=== PATIENT | female | born 1960 | race Caucasian/White ===

== ENCOUNTER 2017-12-08 06:15 | Emergency (ER) | payer OTHER ==
[2017-12-08] MEDS ORDERED: NS 1,000 ML IV ONE ×2 (06:47→07:01)
[2017-12-08] MEDS ORDERED: KETOROLAC 30 MG/1 ML SDV IVP ONE (07:01)
[2017-12-08] MEDS ORDERED: PROMETHAZINE HCL 25 MG/ML INJ IVP ONE ×2 (07:03→07:47)
--- NOTE | 2017-12-08 07:07 | EDPHY ---
H & P Stated Complaint: MIGRAINE SINCE 2 AM/HX OF MIGRAINES Time Seen by Provider: 12/08/17 06:49 HPI/ROS: CHIEF COMPLAINT: Migraine HISTORY OF PRESENT ILLNESS: This is a 57-year-old female who has suffered from migraine headaches since she was 13 years old. Her last migraine was approximately 6 months ago. She developed headache 5 hr ago that has been unremitting. She tried Fioricet. She uses either Fioricet or Imitrex when she has migraines, depending upon what her insurance will cover. Her pain was initially bitemporal and now involves the top of her head also. She has had some or is and is photophobic. She is experiencing nausea but has not vomited. No numbness or weakness. She has not recently been ill and denies fever. This is typical of her usual migraines. REVIEW OF SYSTEMS: A ten point review of systems was performed and is negative with the exception of the items mentioned in the HPI. Past medical history: Migraine headache Past surgical history: Social history: She lives with her . They have recently moved back to [place] from [place]. She is currently unemployed but plans to work once they are more settled. She has established local medical care. She does not use tobacco products. General Appearance: Alert. Vital signs reviewed. Eyes: Pupils equal and round, no conjunctival injection, no discharge. Anicteric. ENT, Mouth: Mucous membranes are moist, no oropharyngeal erythema or edema. Neck: No lymphadenopathy, supple. No meningeal signs. Respiratory: Lungs are clear to auscultation; no wheezes, rales, or rhonchi. Cardiovascular: Regular rate and rhythm; no murmur, rub, or gallop. Gastrointestinal: Abdomen is soft and nontender. Skin: Warm and dry, no rashes on exposed skin, normal color. Extremities: No lower extremity edema, no calf tenderness or swelling. Neurological: Alert and oriented. Moving all four extremities easily and equally. VIRGILIO. EOMI. Facial expressions symmetric. Tongue midline. Sensation intact to light touch over all 4 extremities. Facial sensation intact to light touch. Psychiatric: Normal affect. - Personal History Current Tetanus Diphtheria and Acellular Pertussis (TDAP): Yes - Medical/Surgical History Hx Asthma: No Hx Chronic Respiratory Disease: No Hx Diabetes: No Hx Cardiac Disease: No Hx Renal Disease: No Hx Cirrhosis: No Hx Alcoholism: No Hx HIV/AIDS: No Hx Splenectomy or Spleen Trauma: No Other PMH: MIGRAINES, SINUS SX 2008, AND 2009 - Social History Smoking Status: Never smoked Constitutional: Initial Vital Signs Temperature (C) 36.7 C 12/08/17 06:21 Heart Rate 89 12/08/17 06:21 Respiratory Rate 16 12/08/17 06:21 Blood Pressure 175/107 H 12/08/17 06:21 O2 Sat (%) 99 12/08/17 06:21 O2 Delivery Mode Room Air Allergies/Adverse Reactions: codeine Allergy (Verified 12/08/17 06:20) ondansetron [From Zofran] Allergy (Verified 12/08/17 06:20) Sulfa (Sulfonamide Antibiotics) Allergy (Verified 12/08/17 06:20) Home Medications: Medication Instructions Recorded Fioricet (*) 12/08/17 [place] 5/325 (*) 12/08/17 Medical Decision Making ED Course/Re-evaluation: In the past she has required treatment in the emergency department for her migraine headaches. She has required IV Phenergan and Benadryl, and ultimately Dilaudid if other medications do not work. She will be given 1 L normal saline , Phenergan 12.5 mg IV, Benadryl 25 mg IV, and Toradol 30 mg IV. 7:50 a.m.. Patient is sitting up in bed. She states that she still has headache, essentially no change. 8:45 a.m.: Still with headache although improved. Will give a 2nd dose of Dilaudid, 0.5 mg IV. Per her report this is typically how things go with her headaches. She thinks that a 2nd dose will likely be sufficient. I do not suspect drug-seeking on her part. 9:30 a.m.: Patient re-evaluated. She is awake and alert. She is feeling much better, well enough to go home. She will call her for ride home. Differential Diagnosis: Headache including but not limited to subarachnoid hemorrhage, migraine headache , tension headache and infectious causes such as meningitis, pharyngitis and sinusitis. - Data Points Laboratory Results: Laboratory Results 12/08/17 07:00 12/08/17 07:00 12/08/17 12/08/17 07:00 07:00 WBC 6.31 10^3/uL 10^3/uL (3.80-9.50) RBC 4.27 10^6/uL 10^6/uL (4.18-5.33) Hgb 12.7 g/dL g/dL (12.6-16.3) Hct 37.4 % L % (38.0-47.0) MCV 87.6 fL fL (81.5-99.8) MCH 29.7 pg pg (27.9-34.1) MCHC 34.0 g/dL g/dL (32.4-36.7) RDW 12.4 % % (11.5-15.2) Plt Count 343 10^3/uL 10^3/uL (150-400) MPV 8.6 fL L fL (8.7-11.7) Neut % (Auto) 63.3 % % (39.3-74.2) Lymph % (Auto) 28.5 % % (15.0-45.0) [place] % (Auto) 7.1 % % (4.5-13.0) Eos % (Auto) 0.5 % L % (0.6-7.6) Baso % (Auto) 0.3 % % (0.3-1.7) Nucleat RBC Rel Count 0.0 % % (0.0-0.2) Absolute Neuts (auto) 3.99 10^3/uL 10^3/uL (1.70-6.50) Absolute Lymphs (auto) 1.80 10^3/uL 10^3/uL (1.00-3.00) Absolute Monos (auto) 0.45 10^3/uL 10^3/uL (0.30-0.80) Absolute Eos (auto) 0.03 10^3/uL 10^3/uL (0.03-0.40) Absolute Basos (auto) 0.02 10^3/uL 10^3/uL (0.02-0.10) Absolute Nucleated RBC 0.00 10^3/uL 10^3/uL (0-0.01) Immature Gran % 0.3 % % (0.0-1.1) Immature Gran # 0.02 10^3/uL 10^3/uL (0.00-0.10) Sodium 142 mEq/L mEq/L (135-145) Potassium 3.5 mEq/L mEq/L (3.3-5.0) Chloride 103 mEq/L mEq/L (97-110) Carbon Dioxide 25 mEq/l mEq/l (22-31) Anion Gap 14 mEq/L mEq/L (8-16) BUN 22 mg/dL mg/dL (7-23) Creatinine 0.5 mg/dL L mg/dL (0.6-1.0) Estimated GFR > 60 Glucose 108 mg/dL H mg/dL (70-100) Calcium 9.1 mg/dL mg/dL (8.5-10.4) Medications Given: Discontinued Medications Diphenhydramine HCl (Benadryl Injection) 25 mg IVP EDNOW ONE Stop: 12/08/17 07:02 Last Admin: 12/08/17 07:12 Dose: 25 mg Hydromorphone HCl (Dilaudid) 1 mg IVP EDNOW ONE Stop: 12/08/17 07:51 Last Admin: 12/08/17 08:00 Dose: Not Given Hydromorphone HCl (Dilaudid) 1 mg IVP EDNOW ONE Stop: 12/08/17 08:01 Last Admin: 12/08/17 07:56 Dose: 1 mg Hydromorphone HCl (Dilaudid) 0.5 mg IVP EDNOW ONE Stop: 12/08/17 08:43 Last Admin: 12/08/17 08:55 Dose: 0.5 mg Sodium Chloride (Ns) 1,000 mls @ 0 mls/hr IV ONCE ONE PRN Reason: Wide Open Stop: 12/08/17 06:48 Last Admin: 12/08/17 07:13 Dose: 1,000 mls Sodium Chloride (Ns) 1,000 mls @ 0 mls/hr IV ONCE ONE; Wide Open PRN Reason: Protocol Stop: 12/08/17 07:02 Last Admin: 12/08/17 07:57 Dose: 1,000 mls Ketorolac Tromethamine (Toradol) 30 mg IVP EDNOW ONE Stop: 12/08/17 07:02 Last Admin: 12/08/17 07:10 Dose: 30 mg Promethazine HCl (Phenergan) 12.5 mg IVP ONCE ONE Stop: 12/08/17 07:04 Last Admin: 12/08/17 07:09 Dose: 12.5 mg Promethazine HCl (Phenergan) 12.5 mg IVP EDNOW ONE Stop: 12/08/17 07:48 Last Admin: 12/08/17 07:57 Dose: 12.5 mg Departure - Departure Disposition: Home, Routine, Self-Care Clinical Impression: Migraine Qualifiers: Migraine type: with aura Status migrainosus presence: without status migrainosus Intractability: not intractable Qualified Code(s): G43.109 - Migraine with aura, not intractable, without status migrainosus Condition: Good Instructions: Migraine Headache (ED) Referrals: JENNY KOCH [Primary Care Provider] - As per Instructions
[2017-12-08 07:09] LABS: PLATELET COUNT 343 10^3/uL (150-400)
[2017-12-08] MEDS ORDERED: HYDROmorphONE/DILAUDID 2 MG/ML INJ IVP ONE ×2 (07:50→08:42)
[2017-12-08] MEDS ORDERED: HYDROmorphONE/DILAUDID 1 MG/ML INJ IVP ONE (08:00)
[2017-12-08] MEDS ORDERED: HYDROmorphONE/DILAUDID 1 MG/ML INJ ONE (08:53)
[2017-12-08 09:56] VITALS: BP 148/78
== END 2017-12-08 09:59 | disposition home or self-care (01) ==
DX: G43.109 Migraine with aura, not intractable, without status migrainosus (principal); E86.9 Volume depletion, unspecified
CPT/HCPCS: 96374; J1170; J1200; J1885; J2550

== ENCOUNTER 2018-12-01 21:17 | Emergency (ER) | payer OTHER ==
[2018-12-01] MEDS ORDERED: KETOROLAC 30 MG/1 ML SDV IVP ONE (22:01)
[2018-12-01] MEDS ORDERED: DEXAMETHASONE 10 MG/ML VIAL IVP ONE (22:01)
[2018-12-01] MEDS ORDERED: HALOPERIDOL LACT 5 MG/ML INJ IVP ONE (22:01)
--- NOTE | 2018-12-01 22:01 | EDPHY ---
H & P Stated Complaint: MIGRAINE HEADACHE, MEDS NOT WORKING. N, PHOTOPHOBIA Time Seen by Provider: 12/01/18 21:50 HPI/ROS: Chief Complaint: Migraine headache HPI: 58-year-old woman presenting with migraine headache which came on gradually at 3:30 a.m. This afternoon. She has a history migraine headaches that she has been experiencing since she was 13 years old. This is pretty typical for her migraines. The last time was cyst there was about a year ago when she was seen is emergency department. She took Fioricet, sumatriptan, and Excedrin migraine at home without any relief. No recent illness. No fevers or chills. Some nausea, no vomiting. No fevers or chills. ROS: 10 systems were reviewed and were negative except those elements noted in the HPI. PMH: Migraine headaches, sinus surgery Social History: No smoking, no alcohol, no recreational drug use Family History: non-contributory Physical Exam: Gen: Awake, Alert, No Distress HEENT: Nose: no rhinorrhea Eyes: PERRLA, EOMI Mouth: Moist mucosa Neck: Supple, no JVD Chest: nontender, lungs clear to auscultation Heart: S1, S2 normal, no murmur Abd: Soft, non-tender, no guarding Back: no CVA tenderness, no midline tenderness Ext: no edema, non-tender Skin: no rash Neuro: CN II-XII intact, Sensation grossly intact, Strength 5/5 in bilateral upper and lower extremities - Personal History Current Tetanus/Diphtheria Vaccine: Yes Current Tetanus Diphtheria and Acellular Pertussis (TDAP): Yes - Medical/Surgical History Hx Asthma: No Hx Chronic Respiratory Disease: No Hx Diabetes: No Hx Cardiac Disease: No Hx Renal Disease: No Hx Cirrhosis: No Hx Alcoholism: No Hx HIV/AIDS: No Hx Splenectomy or Spleen Trauma: No Other PMH: MIGRAINES, SINUS SX 2008, AND 2009 - Social History Smoking Status: Never smoked Constitutional: Initial Vital Signs Temperature (C) 36.7 C 12/01/18 21:18 Heart Rate 103 H 12/01/18 21:18 Respiratory Rate 18 12/01/18 21:18 Blood Pressure 203/128 H 12/01/18 21:18 O2 Sat (%) 98 12/01/18 21:18 O2 Delivery Mode Room Air Allergies/Adverse Reactions: codeine Allergy (Verified 12/01/18 21:21) ondansetron [From Zofran] Allergy (Verified 12/01/18 21:21) Sulfa (Sulfonamide Antibiotics) Allergy (Verified 12/01/18 21:21) Home Medications: Medication Instructions Recorded Fioricet (*) 12/08/17 [place] 5/325 (*) 12/08/17 Medical Decision Making ED Course/Re-evaluation: 58-year-old woman with migraine headache. She received a migraine cocktail of Haldol, Toradol, diphenhydramine and Decadron. She has also received IV fluids. Headache is down to a 7 from a 9. She has received Dilaudid in the past. Will dose her with Dilaudid here and reassess. Patient's head is done with 3 on 10. No nausea. She is asked to go home. Will discharge with follow-up with primary care physician. - Data Points Medications Given: Discontinued Medications Dexamethasone (Decadron Injection) 10 mg IVP EDNOW ONE Stop: 12/01/18 22:02 Last Admin: 12/01/18 22:18 Dose: 10 mg Diphenhydramine HCl (Benadryl Injection) 50 mg IVP EDNOW ONE Stop: 12/01/18 22:02 Last Admin: 12/01/18 22:10 Dose: 50 mg Haloperidol Lactate (Haldol Injection) 2.5 mg IVP EDNOW ONE Stop: 12/01/18 22:02 Last Admin: 12/01/18 22:14 Dose: 2.5 mg Hydromorphone HCl (Dilaudid) 0.5 mg IVP EDNOW ONE Stop: 12/01/18 23:02 Last Admin: 12/01/18 23:06 Dose: 0.5 mg Sodium Chloride (Ns) 1,000 mls @ 0 mls/hr IV ONCE ONE; Wide Open PRN Reason: Protocol Stop: 12/01/18 22:04 Last Admin: 12/01/18 22:10 Dose: 1,000 mls Ketorolac Tromethamine (Toradol) 30 mg IVP EDNOW ONE Stop: 12/01/18 22:02 Last Admin: 12/01/18 22:12 Dose: 30 mg Departure - Departure Disposition: Home, Routine, Self-Care Clinical Impression: Migraine headache Condition: Good Instructions: Migraine Headache (ED) Additional Instructions: Follow up with primary care physician in 2-3 days if symptoms are not improving. Referrals: JENNY KOCH [Primary Care Provider] - As per Instructions
[2018-12-01] MEDS ORDERED: NS 1,000 ML IV ONE (22:03)
[2018-12-01] MEDS ORDERED: HYDROmorphONE/DILAUDID 1 MG/ML INJ IVP ONE (23:01)
[2018-12-02 00:22] VITALS: BP 150/96
== END 2018-12-02 00:22 | disposition home or self-care (01) ==
DX: G43.909 Migraine, unspecified, not intractable, without status migrainosus (principal)
CPT/HCPCS: 96374; J1100; J1170; J1200; J1630; J1885